=== PATIENT | male | born 1955 | race American Indian/Alaskan Native ===

== ENCOUNTER 2020-04-03 06:07 | Emergency (ER) | payer OTHER ==
[2020-04-03] MEDS ORDERED: HYDROcodone/ACETAMINOPHEN 5-325 MG TAB PO ONE (07:06)
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
[2020-04-03 09:55] VITALS: BP 118/58
== END 2020-04-03 09:54 | disposition home or self-care (01) ==
LOC: ED 06:07
DX: S82.842A Displaced bimalleolar fracture of left lower leg, initial encounter for closed fracture (principal); S50.02XA Contusion of left elbow, initial encounter; I10 Essential (primary) hypertension; Z98.890 Other specified postprocedural states; Z79.1 Long term (current) use of non-steroidal anti-inflammatories (NSAID); Z79.899 Other long term (current) drug therapy; V09.9XXA Pedestrian injured in unspecified transport accident, initial encounter; Y93.89 Activity, other specified; Y92.410 Unspecified street and highway as the place of occurrence of the external cause; Y99.8 Other external cause status

== ENCOUNTER 2020-05-16 15:22 | Outpatient (CLI) | payer OTHER ==
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
== END 2020-05-16 15:23 | disposition home or self-care (01) ==
LOC: XRAY 15:22
PROVIDERS: ATTEND Orthopaedic Surgery
DX: S82.892A Other fracture of left lower leg, initial encounter for closed fracture (principal); X58.XXXA Exposure to other specified factors, initial encounter; Y93.89 Activity, other specified; Y92.89 Other specified places as the place of occurrence of the external cause; Y99.8 Other external cause status

== ENCOUNTER 2020-07-13 13:23 | Outpatient (CLI) | payer OTHER ==
--- NOTE | 2020-07-13 14:56 | XRay Report ---
LEFT ANKLE 3 VIEWS INDICATION: Left ankle pain. COMPARISON: On 112 FINDINGS: There is no significant interval healing at the distal fibula and distal tibial fractures. However, f racture fragment alignment is stable. Fracture at the base of the fifth metatarsal is not completely included but appears unchanged/unitied as well. Mild surrounding soft tissue swelling persists. No new findings. IMPRESSION: 1. No significant change, no interval healing is appreciated. AP STANDING VIEWS OF BOTH KNEES INDICATION: KNEE PAIN. COMPARISON: No relevant prior imaging study available. FINDINGS: There is mild to moderate tricompartmental degenerative change bilaterally, left greater than right. No acute skeletal abnormality is seen on these single views. IMPRESSION: 1. No acute findings. Signer Name: Isiah Thorne MD Signed: 07/13/2020 2:51 PM Workstation Name: [id number]
== END 2020-07-13 13:24 | disposition home or self-care (01) ==
LOC: XRAY 13:23
PROVIDERS: ATTEND Orthopaedic Surgery
DX: S82.892A Other fracture of left lower leg, initial encounter for closed fracture (principal); M17.0 Bilateral primary osteoarthritis of knee; X58.XXXA Exposure to other specified factors, initial encounter; Y93.89 Activity, other specified; Y92.89 Other specified places as the place of occurrence of the external cause; Y99.8 Other external cause status
CPT/HCPCS: 73565